=== PATIENT | female | born 1995 | race Hispanic/Latino ===

== ENCOUNTER 2023-03-29 19:36 | Emergency (ER) | payer OTHER, SELFPAY ==
[2023-03-29] MEDS ORDERED: Ketorolac Tromethamine 30 MG/ML VIAL ONE (20:56)
[2023-03-29] MEDS ORDERED: Lidocaine Viscous Sol 2% 15 ml UD Cup FS SCH (21:15)
== END 2023-03-29 22:13 | disposition home or self-care (01) ==
LOC: CSHERS 19:36
DX: K04.7 Periapical abscess without sinus (principal); L03.211 Cellulitis of face
CPT/HCPCS: 96372; 99283; J1885

== ENCOUNTER 2023-12-04 11:35 | Emergency (ER) | payer SELFPAY ==
[2023-12-04 12:01] LABS: Bilirubin Neg (Negative); Blood, Urine 10 (Negative); Clarity Clear (Clear); Glucose, Urine (Dipstick) Normal (Negative); Ketone, Urine 5 mg/dL (Negative); Leukocyte 25 (Negative); Nitrite Negative (Negative); Protein, Urine (Dipstick) 15 mg/dl (Neg-Trace)
[2023-12-04 12:21] LABS: Bacteria/HPF 1+ HPF (None Seen); CAUTI Indications for Culture Pregnancy
[2023-12-04 12:22] LABS: Urine Culture Reflex Yes Yes
[2023-12-04 12:27] LABS: #Basophils 0.04 10x3/uL (0.0-0.2); #Eosinphils 0.17 10x3/uL (0.0-0.5); #Monocytes 0.45 10x3/uL (0.0-1.1); #Neutrophils 8.03 10x3/uL (1.5-8.4); %Basophils 0.3 % (0.0-2.0); %Eosinophils 1.5 % (0.0-6.0); %Lymphocytes 24.2 % (18.0-47.0); %Monocytes 3.9 % (0.0-10.0); %Neutrophils 69.5 % (40.0-75.0); Hematocrit 37.7 % (34.9-44.5); Hemoglobin 13.2 g/dL (12.0-15.5); Mean Corpuscular Hemoglobin 30.8 pg (27.0-33.0); Mean Corpuscular Volume 87.9 fL (81.6-98.3); Mean Platelet Volume 9.7 fL (7.4-10.4); Platelet Count 289 10x3/uL (150-450); Red Blood Cell (RBC) Count 4.29 10x6/uL (3.90-5.03); White Blood Cell (WBC) Count 11.6 10x3/uL (3.5-10.5)
[2023-12-04 12:41] LABS: ALT (SGPT) 15 U/L (8-55); AST (SGOT) 16 U/L (5-34); Albumin 3.7 g/dL (3.5-5.0); Alkaline Phosphatase 57 U/L (40-110); Anion Gap 11 mmol/L (10-20); BUN (Urea Nitrogen) 10 mg/dL (7.0-18.7); Bilirubin, Total 0.4 mg/dL (0.2-1.2); Calc. Creatinine Clearance 0 mL/min (70-130); Calcium 9.4 mg/dL (7.8-10.44); Carbon Dioxide 24 mmol/L (22-29); Chloride 106 mmol/L (98-107); Estimated GFR 122; Globulin 2.7 g/dL (2.4-3.5); Glucose 118 mg/dL (70-105); Potassium 4.2 mmol/L (3.5-5.1); Protein, Total 6.4 g/dL (6.0-8.3); Sodium 137 mmol/L (136-145)
== END 2023-12-04 13:58 | disposition home or self-care (01) ==
LOC: CSHERS 11:35
DX: N39.0 Urinary tract infection, site not specified (principal); O23.41 Unspecified infection of urinary tract in pregnancy, first trimester; O99.331 Smoking (tobacco) complicating pregnancy, first trimester; F17.210 Nicotine dependence, cigarettes, uncomplicated; Z3A.08 8 weeks gestation of pregnancy
CPT/HCPCS: 36415; 76856; 80053; 81001; 84702; 85025; 86900; 86901; 87077; 87086; 87186

== ENCOUNTER 2024-02-05 23:36 | Emergency (ER) | payer MEDICAID ==
[2024-02-06] MEDS ORDERED: Acetaminophen 325 MG TAB ONE (00:01)
== END 2024-02-06 02:35 | disposition home or self-care (01) ==
LOC: CSHERS 23:36
DX: O99.891 Other specified diseases and conditions complicating pregnancy (principal); R07.81 Pleurodynia; R10.9 Unspecified abdominal pain; O99.332 Smoking (tobacco) complicating pregnancy, second trimester; F17.210 Nicotine dependence, cigarettes, uncomplicated; Y04.2XXA Assault by strike against or bumped into by another person, initial encounter; Y93.01 Activity, walking, marching and hiking; Z3A.15 15 weeks gestation of pregnancy
CPT/HCPCS: 76815

== ENCOUNTER 2024-04-18 06:54 | Emergency (ER) | payer OTHER, SELFPAY | END 2024-04-18 09:06 | disposition home or self-care (01) | LOC: CSHERS 06:54 | DX: L03.032 Cellulitis of left toe (principal); F17.210 Nicotine dependence, cigarettes, uncomplicated ==